=== PATIENT | female | born 1980 | race Caucasian/White ===

== ENCOUNTER 2020-04-28 13:59 | Emergency (ER) | payer BC, MEDICAID, SELFPAY ==
[~2020-04-28] VITALS: Ht 162.6 cm; Wt 77.4 kg
[2020-04-28 14:05] VITALS: BP 122/69
== END 2020-04-28 16:34 | disposition home or self-care (01) ==
LOC: ED 16:28
DX: S46.011A Strain of muscle(s) and tendon(s) of the rotator cuff of right shoulder, initial encounter (principal); F17.200 Nicotine dependence, unspecified, uncomplicated; X58.XXXA Exposure to other specified factors, initial encounter; Y93.89 Activity, other specified; Y92.89 Other specified places as the place of occurrence of the external cause; Y99.8 Other external cause status
CPT/HCPCS: 99283